=== PATIENT | female | born 1965 | race Caucasian/White ===

== ENCOUNTER 2017-01-06 18:06 | Emergency (ER) | payer OTHER ==
[~2017-01-06] VITALS: Ht 157.5 cm; Wt 75.0 kg
[~2017-01-06 18:06] MED LIST: AMOX500C2 PO; CYCL5TAB PO; LISI10TA PO
[2017-01-06 18:10] VITALS: BP 128/87; PULSE 80; RESP 20; O2SAT 100
--- NOTE | 2017-01-06 21:09 | ED.REPORT ---
HPI-Back Pain 40 and Over Date of Service Jan 06, 2017 ED Provider: Rene Borrero MD The pt is a 51 y/o female with a hx of HTN and spinal stenosis who presents to the ED complaining of a ground level fall due to right leg weakness today. The pt fell onto her left knee and lost control of her bladder. She also reports left knee abrasion and numbness in the toes on the right foot. She has never had a similar episode before. The pt has been told she needs L5-S1 surgery for nerve impingement. She is also currently on a halter monitor for syncopal episodes. Nursing Notes Stated Complaint: BOTH LEGS GAVE OUT Chief Complaint: Back Pain or Injury Nursing Notes Reviewed: Yes Allergies: Coded Allergies: lorazepam (Verified Allergy, Unknown, 04/01/16) Uncoded Allergies: SHRIMP (Adverse Reaction, Unknown, 01/03/09) Scheduled Lisinopril-Expunged Drug, Do Not Renew! (Lisinopril-Expunged Drug, Do Not Renew! ) 10 Mg Tablet 10 MG PO DAILY pt resumed rx 01/01/09 Prednisone (PredniSONE) 20 Mg Tablet 20 MG PO TID Scheduled PRN Amoxicillin Trihydrate (Amoxicillin 500MG Cap) 500 Mg Capsule 500 MG PO TID PRN PRN Cyclobenzaprine (Cyclobenzaprine) 5 Mg Tablet 5 MG PO HS PRN PRN Spasm Hydrocodone-Acetaminophen 5-325 mg (Hydrocodone-Acetaminophen 5-325 mg) 1 Each Tablet 1 TABLET PO Q4H PRN PRN For Pain General Time Seen by MD: 21:07 Chief Complaint Other (right leg weakness) Hx Obtained From: Patient Arrived By: Walk-in Sudden in Onset?: Yes Onset Occurred: 1 - 4 hours ago Symptom Duration: Since onset Severity: Current: No pain currently Severity: Maximum: No pain Recent Healthcare: No recent doctor visit Similar Sx Previous: No Past Medical History Past Medical History HTN and spinal stenosis Past Surgical History R rotator cuff repair Smoking History Never Smoker Social History Alcohol Use: "Social" Drug Use: Denies drug use Ambulatory Status Independent Review of Systems Reports: left knee abrasion Female: Reports: Incontinence Neurologic: Reports: Numbness (toes on the right foot), Weakness (right leg) Complete sys rev & neg: except as marked. Physical Exam Initial Vital Signs Vital Signs (First) Date Time Temp Pulse Resp B/P Pulse Ox O2 Delivery O2 Flow Rate FiO2 01/06/17 18:10 36.5 80 20 128/87 100 Room Air Initial VS: Reviewed, Vital signs normal Head / Eyes: Atraumatic, Normocephalic Neck: Supple, Non-tender, Full range of motion Skin: Warm, Dry, No cyanosis General/Constitutional: Awake, Alert, No acute distress, Well appearing, Cooperative Respiratory / Chest: Atraumatic, Breath sounds NL, Breath sounds = bilat, No respiratory distress, No rales, No rhonchi, No wheezing Cardiovascular: Heart rate NL, Regular rhythm, Heart sounds NL, No gallop, No murmurs, No rubs Abdomen: Atraumatic, Soft, Non-tender, No guarding, No rebound Back: Atraumatic, Full range of motion, Painless range of motion, Non-tender Neurologic: Oriented X3, Speech NL, No motor deficits Right posterior thigh muscle laxity and weakness. Decreased sensation on the top of her right foot. Good right foot dorsi-flexion. Good right foot plantar flexion. Lower Extremity / Pelvis / MS: Atraumatic, Full range of motion, No swelling, Non-tender, No erythema, No deformity, Neurologic intact, Vascular intact Upper Extremity / MS: Atraumatic, Full range of motion, No swelling, Non-tender , No erythema, No deformity, Neurologic intact, Vascular intact Interpretation & Diagnostics MRI lumbar spine: Impression: There is severe disc space height loss with There are multilevel degenerative changes of the disc spaces, uncovertebral joints and facet joints, endplate signal abnormalities at L1-L2 with disc osteophyte complex formation causing effacement of the anterior thecal sac. Signed by Dr. Yg Franklin 01/06/17 22:[address] Yg Franklin 01/06/17 23:55 In comparison to the prior MRI from December 16, 2015 the finding described at the L1-L2 disc space is unchanged. Re-Eval/Medical Decision Med Decision/Clinical Course 51-year-old female with known multilevel disc disease with an lumbar nerve root compressions presents with an acute exacerbation. The MRI shows minimal change from previous and no significant evidence of central cord compression. She is placed on prednisone and will follow up with her orthopedist. Source of Hx: Old records Re-Evaluation/Progress : Time of Eval: 00:07 Re-Evaluation/Progress Note: Rechecked pt. Discussed imaging results, diagnosis and plan to discharge. Pt understands and agrees with the plan. F/U instruction and RTER warning given. All questions addressed. Counseled Regarding: Diagnosis, Need for follow-up, When/why to return to ED Discharge & Departure Impression: Primary Impression: Right sided sciatica Disposition: Home Discharge Condition All VS Reviewed: Yes Condition: Stable Patient Instructions: Sciatica (ED) Additional Instructions: The MRI shows multiple level disc disease and nerve impingement, but no real change from November of last year. Prednisone 20 mg by mouth 3 times a day for 5 days, #15 prescribed. Hydrocodone/acetaminophen 5/325, one half to one tablet every 4-6 hours as needed for severe pain, #10 prescription written. Use sparingly and do not use if you are going to be driving. Follow-up with your regular orthopedist for further evaluation and treatment. Referrals: Blanca Villalba MD (PCP) Scribe Attestation Portions of this note were transcribed by Samir Bolanos. I,, personally performed the history,physical exam and medical decision-making;I reviewed and confirmed the accuracy of the information in the transcribed note. Signed by Carolina Funk. 01/06/17 copies to: Blanca Villalba MD, Howard L MD Jan 06, 2017 21:09 Samir Bolanos Jan 06, 2017 21:15
[2017-01-07] MEDS ORDERED: predniSONE 20 mg Tablet PO ONE (00:15)
[2017-01-07] MEDS ORDERED: HYDROcodone-APAP 5-325 mg Tablet PO ONE (00:15)
[2017-01-07] MEDS ORDERED: HYDR-4003 PO (00:19)
[2017-01-07] MEDS ORDERED: PRE20 PO (00:19)
[2017-01-07 00:50] VITALS: BP 136/78; PULSE 84; RESP 18; O2SAT 99
--- NOTE | 2017-01-07 10:22 | DRSVH ---
PROCEDURE: MRI LUMBAR SPINE WITHOUT CONTRAST ([id number]) INDICATIONS: R leg weakness, incontinence TECHNIQUE: Noncontrast sagittal T1 spin echo and T2 fast echo, sagittal STIR, axial T1 and T2 fast spin echo thr ough the lumbar spine. In cases with scoliosis, additional coronal T2 fast spin echo may be performe d. COMPARISON: [facility], MR, MR LUMBAR SPINE WO CON, 12/16/2015, 16:44. [facility] [place], [place] , SPINE LUMBAR 2 OR 3VW, 09/30/2012, 4:56 PM. [facility], MR, LUMBAR SPINE W/O CONTRAST, 03/18/2012, 19:33. [facility] , MR, LUMBAR SPINE W/O CONTRAST, 10/01/2010, 17:51. [facility], CR, SPINE LUMB 2 OR 3VW, 09/25/2010, 10:34 AM. [facility], MR, LUMBAR SPIN E W/O CONTRAST, 02/02/2006, 22:14. FINDINGS: Image quality: Limited by motion artifact. Alignment and Curvature: There is trace L2-L3 retrolisthesis which is stable compared to prior exami [facility] obtained 12/16/2015. Mild anterior wedging of the L1 vertebral body is stable compared to our e xamination Bone Marrow: Reactive endplate changes noted adjacent the L1-L2 disc. No acute vertebral body berhane tye fractures. Spinal Cord: Conus medullaris terminates at the L2 level. Visualized cord demonstrates normal signa l and size. Paraspinous Soft Tissues: No paravertebral masses. L1-L2: Loss of disc signal and height. Moderate, diffuse disc bulge. Moderate narrowing of the centra l canal secondary to disc disease. Mild bilateral facet hypertrophy. Small facet joint effusions note d. Moderate bilateral neural foraminal narrowing secondary to disc disease and facet hypertrophy. L2-L3: Loss of disc signal and slight loss of disc height. Mild to moderate diffuse disc bulge. Mild to moderate narrowing of the central canal secondary to disc disease and facet hypertrophy. Mild bila teral neural foraminal narrowing secondary to disc and facet disease. Focal high intensity zone is no berenice in the posterior annulus compatible with a fissure. L3-L4: Loss of the signal. Mild, diffuse disc bulge. Mild bilateral facet hypertrophy. Mild narrowing of the central canal secondary to disc disease and facet hypertrophy. Mild bilateral neural foramina l narrowing secondary to disc and facet disease. L4-L5: Disc has a normal appearance. Mild bilateral facet hypertrophy. No central stenosis. Mild bila teral neural foraminal narrowing secondary to facet hypertrophy. No neural impingement. Small left fa cet joint effusion noted. L5-S1: Loss of disc signal. Minimal, diffuse disc bulge. Mild bilateral facet hypertrophy. No central stenosis. Moderate right neural foraminal narrowing secondary to disc and facet disease. IMPRESSION: 1. Multilevel degenerative disc disease. 2. Multilevel facet arthropathy. 3. Moderate L1-L2 central canal narrowing. Mild to moderate L2-L3 central canal narrowing. Mild L3-L4 and L4-L5 central canal narrowing. 4. Moderate bilateral L1 and L2 neuroforaminal narrowing. Mild bilateral L2 and L3, L3-L4 and L4-L5 n eural foraminal narrowing. Moderate right L5-S1 neural foraminal narrowing. 5. No neural impingement. 6. L2-L3 disc annulus fissure. Dictated by: Carey Keene MD, PhD on 01/07/2017 at 10:07 Approved by: Carey Keene MD, PhD on 01/07/2017 at 10:20
== END 2017-01-07 00:53 | disposition home or self-care (01) ==
LOC: SED 18:06
DX: M54.31 Sciatica, right side (principal); I10 Essential (primary) hypertension; Z88.8 Allergy status to other drugs, medicaments and biological substances; Z91.013 Allergy to seafood; W17.89XA Other fall from one level to another, initial encounter; Y93.9 Activity, unspecified; Y92.9 Unspecified place or not applicable; Y99.9 Unspecified external cause status